=== PATIENT | female | born 1960 | race African-American/Black ===

== ENCOUNTER 2019-04-12 14:35 | Emergency (ER) | payer BC, MEDICAID ==
[~2019-04-12] VITALS: Ht 167.6 cm; Wt 104.3 kg
[~2019-04-12 14:35] MED LIST: AMLO5TAB4 PO; [UNRECOGNIZED DRUG - REMARK] OP/OT
--- NOTE | 2019-04-12 15:11 | NUR ---
Dr. Nam at the bedside for MSE.
--- NOTE | 2019-04-12 15:38 | NUR ---
Patient discharged to home in stable conditon. Written and verbal after care instructions given. Patient verbalizes understanding of instructions.
== END 2019-04-12 15:35 | disposition home or self-care (01) ==
LOC: ER 14:35
DX: R51 Headache (principal); Z90.49 Acquired absence of other specified parts of digestive tract; Z88.0 Allergy status to penicillin; Z90.89 Acquired absence of other organs; Z79.899 Other long term (current) drug therapy
CPT/HCPCS: 93005; A4663

== ENCOUNTER 2021-02-20 00:32 | Emergency (ER) | payer SELFPAY ==
[~2021-02-20] VITALS: Ht 165.1 cm; Wt 111.1 kg
[2021-02-20 01:52] LABS: HEMATOCRIT 39.4 % (31.2-41.9); MEAN CORPUSCULAR HEMOGLOBIN 30.4 uug (24.7-32.8); MEAN CORPUSCULAR VOLUME 90.7 fL (75.5-95.3); PLATELET COUNT (AUTO) 334 K/uL (179-408)
[2021-02-20 01:53] LABS: CREATININE 1.2 mg/dL (0.6-1.3); POTASSIUM 3.8 mmol/L (3.5-5.1)
[2021-02-20 02:05] LABS: BILIRUBIN,DIRECT 0.1 mg/dL (0.0-0.2); BILIRUBIN,TOTAL 0.3 mg/dL (0.2-1.0); TOTAL PROTEIN, SERUM 7.6 g/dL (6.4-8.2)
--- NOTE | 2021-02-20 02:48 | NUR ---
US at bedside
--- NOTE | 2021-02-20 03:53 | NUR ---
Patient discharged to home in stable condition. Written and verbal after care instructions given. Patient verbalizes understanding of instructions. Stressed follow up or return to ER for worsening s/s. Patient A/Ox3, able to ambulate with steady gait. All belongings returned to patient prior to departure.
[2021-02-20 03:54] VITALS: BP 133/79
== END 2021-02-20 03:54 | disposition home or self-care (01) ==
LOC: ER 00:41
DX: M79.662 Pain in left lower leg (principal); Z88.0 Allergy status to penicillin; I10 Essential (primary) hypertension; R73.03 Prediabetes; Z90.49 Acquired absence of other specified parts of digestive tract; H40.9 Unspecified glaucoma
CPT/HCPCS: 36415; 85025; 85730; A4663

== ENCOUNTER 2023-02-04 21:00 | Emergency (ER) | payer BC ==
[~2023-02-04] VITALS: Ht 165.1 cm; Wt 115.7 kg
[2023-02-04] MEDS ORDERED: CYCL5TAB PO (23:14)
[2023-02-04 23:32] VITALS: BP 145/82; TEMP 98; O2SAT 98
== END 2023-02-04 23:33 | disposition home or self-care (01) ==
LOC: ER 21:04
DX: M79.662 Pain in left lower leg (principal); M54.30 Sciatica, unspecified side; Z90.49 Acquired absence of other specified parts of digestive tract; Z90.89 Acquired absence of other organs; Z88.0 Allergy status to penicillin; Z79.899 Other long term (current) drug therapy
CPT/HCPCS: A4663

== ENCOUNTER 2024-10-23 14:10 | Emergency (ER) | payer BC ==
[~2024-10-23] VITALS: Ht 165.1 cm; Wt 115.7 kg
[~2024-10-23 14:10] MED LIST changes: +CYCL5TAB PO
[2024-10-23 16:23] VITALS: BP 130/90; O2SAT 99
== END 2024-10-23 16:24 | disposition home or self-care (01) ==
LOC: ER 14:10
DX: E88.810 Metabolic syndrome (principal); I11.9 Hypertensive heart disease without heart failure; R07.9 Chest pain, unspecified; Z79.899 Other long term (current) drug therapy; Z90.89 Acquired absence of other organs; Z88.0 Allergy status to penicillin
CPT/HCPCS: A4606; A4663

== ENCOUNTER 2025-01-18 14:30 | Emergency (ER) | payer BC ==
[~2025-01-18] VITALS: Ht 165.1 cm; Wt 113.4 kg
[2025-01-18 14:50] LABS: PLATELET COUNT (AUTO) 316 K/uL (179-408); RED BLOOD CELL COUNT(AUTO) 4.27 MIL/uL (3.63-4.92); RED CELL DISTRIBUTION WIDTH 13.8 % (12.3-17.7); WHITE BLOOD COUNT (AUTO) 4.7 K/uL (3.8-11.8)
[2025-01-18 14:58] LABS: CREATININE 1.0 mg/dL (0.6-1.3); SODIUM SERUM 143 mmol/L (136-145); UREA NITROGEN, BLOOD 11 mg/dL (7-18)
[2025-01-18] MEDS ORDERED: CYCL5TAB PO (17:20)
[2025-01-18] MEDS ORDERED: IBUP-1955 PO (17:20)
[2025-01-18 17:32] VITALS: BP 138/80; TEMP 98.2; O2SAT 98
== END 2025-01-18 17:33 | disposition home or self-care (01) ==
LOC: ER 14:30
DX: R07.89 Other chest pain (principal); I10 Essential (primary) hypertension; Z79.899 Other long term (current) drug therapy; Z88.0 Allergy status to penicillin; Z90.89 Acquired absence of other organs; Z86.69 Personal history of other diseases of the nervous system and sense organs; Z87.09 Personal history of other diseases of the respiratory system; Z87.19 Personal history of other diseases of the digestive system; Z87.39 Personal history of other diseases of the musculoskeletal system and connective tissue
CPT/HCPCS: 36415; 71045; 84484; 85025; A4606; A4663